=== PATIENT | male | born 2000 | race Caucasian/White ===

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

== ENCOUNTER 2019-03-27 15:57 | Emergency (ER) | payer MEDICAID ==
[~2019-03-27] VITALS: Ht 175.3 cm; Wt 58.2 kg
[2019-03-27 16:11] VITALS: BP 108/61
--- NOTE | 2019-03-27 17:10 | NUR ---
spoke with answering service for animal control and left message regarding bite, that pt was bitten by a stray dalmation puppy at the [facility] at [address] [facility], yesterday (03-26-19) with injury to his finger
[2019-03-27] MEDS ORDERED: rabies immune globulin/PF 150 unit/ml inj IM ONE (17:20)
[2019-03-27] MEDS ORDERED: rabies vaccine (PCEC)/PF 2.5 unit kit IM ONE (17:20)
[2019-03-27] MEDS ORDERED: AMOX-422 PO (17:48)
== END 2019-03-27 18:30 | disposition home or self-care (01) ==
LOC: ER 15:57
DX: S61.212A Laceration without foreign body of right middle finger without damage to nail, initial encounter (principal); S60.511A Abrasion of right hand, initial encounter; G43.909 Migraine, unspecified, not intractable, without status migrainosus; Z79.2 Long term (current) use of antibiotics; Z79.899 Other long term (current) drug therapy; W54.0XXA Bitten by dog, initial encounter; Y93.89 Activity, other specified; Y92.89 Other specified places as the place of occurrence of the external cause; Y99.8 Other external cause status
CPT/HCPCS: 90375; 90471; 90675; 96372; 99283

== ENCOUNTER 2020-02-13 08:11 | Emergency (ER) | payer MEDICAID ==
[~2020-02-13] VITALS: Ht 175.3 cm; Wt 58.6 kg
[~2020-02-13 08:11] MED LIST changes: -MELA3TAB PO; +MELA3TAB39 PO
[2020-02-13 08:13] VITALS: BP 135/87
[2020-02-13] MEDS ORDERED: ONDA4TAB6 PO (08:21)
[2020-02-13] MEDS ORDERED: HYDR-3965 PO (08:21)
[2020-02-13] MEDS ORDERED: METR500T PO (08:21)
[2020-02-13] MEDS ORDERED: METH4TAB81 PO (08:21)
[2020-02-13] MEDS ORDERED: AMOX500C2 PO (08:21)
[2020-02-13] MEDS ORDERED: acetaminophen 325mg tablet PO ONE (08:25)
== END 2020-02-13 08:55 | disposition home or self-care (01) ==
LOC: ER 08:11
DX: K04.7 Periapical abscess without sinus (principal); K02.9 Dental caries, unspecified; G43.909 Migraine, unspecified, not intractable, without status migrainosus; Z87.442 Personal history of urinary calculi; Z79.899 Other long term (current) drug therapy
CPT/HCPCS: 99283

== ENCOUNTER 2020-04-24 05:02 | Emergency (ER) | payer MEDICAID ==
[~2020-04-24] VITALS: Ht 177.8 cm; Wt 57.7 kg
[~2020-04-24 05:02] MED LIST changes: +METH4TAB81 PO
[2020-04-24 05:09] VITALS: BP 122/77
[2020-04-24] MEDS ORDERED: PENI500T2 PO (06:26)
[2020-04-24] MEDS ORDERED: HYDR-4353 PO (06:26)
== END 2020-04-24 06:34 | disposition home or self-care (01) ==
LOC: ER 05:02
DX: K05.30 Chronic periodontitis, unspecified (principal); F32.9 Major depressive disorder, single episode, unspecified; F17.200 Nicotine dependence, unspecified, uncomplicated; Z79.899 Other long term (current) drug therapy
CPT/HCPCS: 99283

== ENCOUNTER 2020-05-05 21:06 | Emergency (ER) | payer MEDICAID ==
[~2020-05-05] VITALS: Ht 179.1 cm; Wt 57.0 kg
[~2020-05-05 21:06] MED LIST changes: +HYDR-4353 PO; +PENI500T2 PO
[2020-05-05 21:50] LABS: CLARITY,URINE CLEAR (Clear); COLOR,URINE YELLOW (Yellow); GLUCOSE, URINE NEGATIVE (Neg); KETONES,URINE NEGATIVE (Neg); LEUKOCYTE ESTERASE ,URINE NEGATIVE (Neg); NITRITES, URINE NEGATIVE (Neg); OCCULT BLOOD,URINE SMALL (Neg); PH,URINE 5.5 (4.8-8.0); PROTEIN,URINE NEGATIVE (Neg); UA COLLECTION TYPE CLN CATCH MIDSTREAM; UROBILINOGEN,URINE 0.2 E.U/dL (0.2-1.0)
[2020-05-05 21:55] LABS: BASOPHILS % (AUTO) 0.6 % (0-1); EOSINOPHILS % (AUTO) 0.6 % (0-6); HEMATOCRIT 43.3 % (42.0-52.0); HEMOGLOBIN 14.3 g/dl (14.0-17.9); LYMPHOCYTES # (AUTO) 1.9 X10'3 (1.1-4.8); LYMPHOCYTES % (AUTO) 25.6 % (21-51); MEAN CORPUSCULAR HEMOGLOBIN 30.5 PG (27.0-31.0); MEAN CORPUSCULAR HGB CONC 33.1 g/dL (33.0-36.5); MEAN CORPUSCULAR VOLUME 92.2 FL (78-98); MEAN PLATELET VOLUME 7.9 FL (7.4-10.4); MONOCYTES # (AUTO) 0.9 X10'3 (0-0.9); MONOCYTES % (AUTO) 11.5 % (2-12); NEUTROPHILS # (AUTO) 4.6 X10'3 (1.8-7.7); NEUTROPHILS % (AUTO) 61.7 % (42-75); PLATELET COUNT 217 X10'3 (140-440); RED CELL DISTRIBUTION WIDTH 13.5 % (11.5-14.5); WHITE BLOOD COUNT 7.4 X10'3 (4.5-11.0)
[2020-05-05 22:03] LABS: ALANINE AMINOTRANSFERASE 15 U/L (12-78); ALBUMIN 4.4 G/DL (3.4-5.0); ALBUMIN/GLOBULIN RATIO 1.3 (1.1-1.5); ALKALINE PHOSPHATASE 60 IU/L (20-180); ANION GAP 9 (8-16); ASPARTATE AMINO TRANSFERASE 14 U/L (10-37); BILIRUBIN,TOTAL 0.4 MG/DL (0.1-1.0); BLOOD UREA NITROGEN 8 MG/DL (7-18); BUN/CREATININE RATIO 7.1 (5.4-32.0); CALCIUM 9.2 MG/DL (8.5-10.1); CHLORIDE 106 MMOL/L (99-107); CREATININE 1.12 MG/DL (0.60-1.10); GLUCOSE 91 MG/DL (70-104); LIPASE 82 U/L (73-393); POTASSIUM 3.8 MMOL/L (3.5-5.1); SODIUM 142 MMOL/L (135-145); TOTAL CARBON DIOXIDE 27.4 MMOL/L (24-32); TOTAL PROTEIN 7.7 G/DL (6.4-8.2); eGFR 84 ML/MIN
[2020-05-05] MEDS ORDERED: ketorolac tromethamine 15mg/ml inj. IM ONE (22:20)
--- NOTE | 2020-05-05 22:24 | NUR ---
U/S CALLED BACK AT 22:[address] IN
[2020-05-05 22:44] LABS: C-REACTIVE PROTEIN < 0.05 MG/DL (0.0-0.5)
[2020-05-05 22:57] LABS: BACTERIA,URINE NONE SEEN /HPF (Neg); MUCUS STRANDS MANY /LPF (Neg); SQUAMOUS EPITHELIAL CELL,UR NONE SEEN /LPF (FEW); WBC,URINE 0-4 /HPF (0-4)
[2020-05-05 23:36] VITALS: BP 110/64
== END 2020-05-05 23:46 | disposition home or self-care (01) ==
LOC: ER 21:08
DX: R10.31 Right lower quadrant pain (principal); R05 Cough; G43.909 Migraine, unspecified, not intractable, without status migrainosus; F32.9 Major depressive disorder, single episode, unspecified; F17.200 Nicotine dependence, unspecified, uncomplicated; Z87.442 Personal history of urinary calculi; Z79.2 Long term (current) use of antibiotics; Z79.899 Other long term (current) drug therapy
CPT/HCPCS: 36415; 76705; 80053; 81001; 83690; 85025; 86140; 96372; 99284; J1885